=== PATIENT | male | born 2000 | race Caucasian/White ===

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

== ENCOUNTER 2019-09-26 08:25 | Emergency (ER) | payer OTHER, MEDICAID ==
[~2019-09-26] VITALS: Ht 177.8 cm; Wt 98.0 kg
[~2019-09-26 08:25] MED LIST changes: -DULO60CA63 PO; +DULO60CA64 PO
[2019-09-26] MEDS ORDERED: SODIUM CHLORIDE 0.9% 1,000 ML IV ONE (08:57)
[2019-09-26] MEDS ORDERED: MORPHINE SULFATE 4 MG/ML CPJ (NOT FOR IM USE) IV STA (08:57)
[2019-09-26] MEDS ORDERED: ONDANSETRON HCL 4MG/2ML INJ IV STA (08:57)
[2019-09-26 09:15] LABS: HEMATOCRIT. 44.7 % (42.0-52.0); HEMOGLOBIN. 15.6 g/dL (14.0-18.0); MEAN CORPUSCULAR HEMOGLOBIN 30.6 pg (28.0-32.0); MEAN CORPUSCULAR VOLUME 87.5 fL (80.0-94.0); MEAN PLATELET VOLUME 7.2 fl (7.4-10.4); PLATELET 335 x1000/uL (130-400); RED CELL DISTRIBUTION WIDTH 13.6 % (11.6-14.6)
[2019-09-26 09:18] LABS: CHLORIDE 107 mEq/L (98-107)
[2019-09-26 09:19] LABS: CLARITY URINE CLEAR (CLEAR); COLOR URINE YELLOW (YELLOW); KETONES URINE 1+ (NEGATIVE); LEUKOCYTE ESTERASE URINE NEGATIVE (NEGATIVE); NITRITE URINE NEGATIVE (NEGATIVE); OCCULT BLOOD URINE NEGATIVE (NEGATIVE); PH URINE 5.5 (4.5-8.0); PROTEIN URINE 1+ (NEGATIVE); SPECIFIC GRAVITY URINE 1.035 (1.005-1.030); UROBILINOGEN URINE 0.2 E.U./dL (0.2-1.0)
[2019-09-26 10:28] LABS: PLATELET ESTIMATE NORMAL
[2019-09-26] MEDS ORDERED: ONDANSETRON HCL 4MG/2ML INJ IV ONE (10:30)
[2019-09-26 12:20] VITALS: BP 140/88
== END 2019-09-26 12:40 | disposition home or self-care (01) ==
LOC: ER 08:25
DX: K29.70 Gastritis, unspecified, without bleeding (principal); F12.10 Cannabis abuse, uncomplicated; F15.10 Other stimulant abuse, uncomplicated; Z79.899 Other long term (current) drug therapy
CPT/HCPCS: 36415; 74176; 80053; 81003; 83690; 85025; 85610; 96361; 96374; 96375; 96376; 99285; J2270; J2405; J7030

== ENCOUNTER 2023-05-06 10:26 | Emergency (ER) | payer MEDICAID ==
[~2023-05-06] VITALS: Ht 177.8 cm; Wt 100.0 kg
[2023-05-06 10:35] VITALS: TEMP 98.4; O2SAT 99
[2023-05-06 11:00] LABS: BASOPHILS % 0.2 % (0.0-2.0); EOSINOPHILS % 0.2 % (0.0-5.0); HEMATOCRIT. 45.6 % (42.0-52.0); HEMOGLOBIN. 15.9 g/dL (14.0-18.0); LYMPHOCYTES % 9.7 % (20.0-50.0); MEAN CORPUSCULAR HEMOGLOBIN 30.8 pg (28.0-32.0); MEAN CORPUSCULAR HGB CONC 34.8 g/dL (31.0-37.0); MEAN CORPUSCULAR VOLUME 88.4 fL (80.0-94.0); MEAN PLATELET VOLUME 7.5 fl (7.4-10.4); MONOCYTES % 5.1 % (2.0-8.0); NEUTROPHILS % 84.8 % (40.0-76.0); PLATELET 364 x1000/uL (130-400); RED BLOOD CELL COUNT 5.16 mill/uL (4.7-6.1); RED CELL DISTRIBUTION WIDTH 13.8 % (11.6-14.6); WHITE BLOOD COUNT 10.3 x1000/uL (4.5-11.0)
[2023-05-06] MEDS: ONDANSETRON 4MG ODT PO ONE (11:00)
[2023-05-06] MEDS: FAMOTIDINE 20MG TABLET PO SCH (11:05)
[2023-05-06] MEDS: MAGNESIUM/ALUMINUM HYDROXIDE/SIMETHICONE 30ML UDC PO ONE (11:05)
[2023-05-06 11:21] LABS: ALANINE AMINOTRANSFERASE 92 IU/L (10-49); ALBUMIN 5.1 g/dL (3.2-4.8); ASPARTATE AMINOTRANSFERASE 48 IU/L (<34); BILIRUBIN TOTAL 0.6 mg/dL (0.1-1.0); CALCIUM 10.2 mg/dL (8.7-10.4); CARBON DIOXIDE 26 mEq/L (21-32); CHLORIDE 102 mEq/L (98-107); CREATININE 1.1 mg/dL (0.6-1.3); GLUCOSE 114 mg/dL (70-105); POTASSIUM 3.8 mEq/L (3.5-5.1); PROTEIN TOTAL 8.3 g/dL (6.0-8.3); SODIUM 137 mEq/L (136-145); UREA NITROGEN BLOOD 14 mg/dL (9-23)
[2023-05-06 12:24] LABS: CLARITY URINE CLEAR (CLEAR); COLOR URINE YELLOW (YELLOW); GLUCOSE URINE NEGATIVE (NEGATIVE); KETONES URINE 1+ (NEGATIVE); LEUKOCYTE ESTERASE URINE NEGATIVE (NEGATIVE); NITRITE URINE NEGATIVE (NEGATIVE); OCCULT BLOOD URINE NEGATIVE (NEGATIVE); PH URINE 8.5 (4.5-8.0); PROTEIN URINE NEGATIVE (NEGATIVE); SPECIFIC GRAVITY URINE 1.015 (1.005-1.030); UROBILINOGEN URINE 0.2 E.U./dL (0.2-1.0)
[2023-05-06 12:52] LABS: *AMPHETAMINES SCREEN URINE NEGATIVE (NEGATIVE); *BARBITURATES SCREEN URINE NEGATIVE (NEGATIVE); *BENZODIAZEPINES SCREEN URINE NEGATIVE (NEGATIVE); *COCAINE SCREEN URINE NEGATIVE (NEGATIVE); CANNABINOID URINE SCREEN PRESUMPTIVE POSITIVE (NEGATIVE); ECSTASY MDMA SCREEN URINE NEGATIVE (NEGATIVE); METHADONE URINE SCREEN Neg (NEGATIVE); OPIATES URINE SCREEN NEGATIVE (NEGATIVE); PHENCYCLIDINE URINE SCREEN NEGATIVE (NEGATIVE)
[2023-05-06 15:53] VITALS: BP 124/103; PULSE 87; RESP 16
== END 2023-05-06 15:57 | disposition home or self-care (01) ==
LOC: ER 11:19
DX: R11.10 Vomiting, unspecified (principal); F12.90 Cannabis use, unspecified, uncomplicated; Z79.899 Other long term (current) drug therapy
CPT/HCPCS: 80053; 80305; 81003; 83690; 85025; 36415; 74176; 99291; Q0162; Z7610; 99284

== ENCOUNTER 2024-03-23 11:21 | Emergency (ER) | payer MEDICAID ==
[~2024-03-23] VITALS: Ht 177.8 cm; Wt 91.0 kg
[2024-03-23 11:24] VITALS: O2SAT 99
[2024-03-23 12:05] LABS: HEMATOCRIT. 53.2 % (42.0-52.0); HEMOGLOBIN. 18.3 g/dL (14.0-18.0); MEAN CORPUSCULAR HEMOGLOBIN 31.2 pg (28.0-32.0); MEAN CORPUSCULAR HGB CONC 34.3 g/dL (31.0-37.0); MEAN CORPUSCULAR VOLUME 90.8 fL (80.0-94.0); MEAN PLATELET VOLUME 7.2 fl (7.4-10.4); PLATELET 448 x1000/uL (130-400); RED BLOOD CELL COUNT 5.86 mill/uL (4.7-6.1); RED CELL DISTRIBUTION WIDTH 14.4 % (11.6-14.6); WHITE BLOOD COUNT 23.9 x1000/uL (4.5-11.0)
[2024-03-23 12:07] LABS: DIFFERENTIAL COMMENT 1
[2024-03-23 12:15] LABS: CHLORIDE 90 mEq/L (98-107); POTASSIUM 3.9 mEq/L (3.5-5.1); SODIUM 129 mEq/L (136-145)
[2024-03-23 12:16] LABS: CARBON DIOXIDE 22 mEq/L (21-32)
[2024-03-23 12:17] LABS: CALCIUM 11.2 mg/dL (8.7-10.4)
[2024-03-23 12:21] LABS: GLUCOSE 133 mg/dL (70-105)
[2024-03-23 12:22] LABS: TROPONIN I HIGH SENSITIVITY 9 ng/L (3.0-53); UREA NITROGEN BLOOD 43 mg/dL (9-23)
[2024-03-23 12:23] LABS: ALANINE AMINOTRANSFERASE 33 IU/L (10-49); ALBUMIN 5.6 g/dL (3.2-4.8); ASPARTATE AMINOTRANSFERASE 24 IU/L (<34); BILIRUBIN DIRECT 0.3 mg/dL (<=3.0)
[2024-03-23 12:24] LABS: BILIRUBIN TOTAL 1.1 mg/dL (0.1-1.0); PROTEIN TOTAL 9.9 g/dL (6.0-8.3)
[2024-03-23 12:39] LABS: CREATININE 3.8 mg/dL (0.6-1.3)
[2024-03-23 12:58] LABS: CLARITY URINE CLOUDY (CLEAR); COLOR URINE DARK YELLOW (YELLOW); GLUCOSE URINE NEGATIVE (NEGATIVE); KETONES URINE TRACE (NEGATIVE); LEUKOCYTE ESTERASE URINE NEGATIVE (NEGATIVE); NITRITE URINE NEGATIVE (NEGATIVE); OCCULT BLOOD URINE NEGATIVE (NEGATIVE); PROTEIN URINE 2+ (NEGATIVE); SPECIFIC GRAVITY URINE 1.025 (1.005-1.030)
[2024-03-23] MEDS: ONDANSETRON HCL 4MG/2ML INJ IV STA (13:28)
[2024-03-23] MEDS: SODIUM CHLORIDE 0.9% 1,000 ML IV ONE ×2 (13:28)
[2024-03-23 14:25] LABS: SQUAMOUS EPITHELIAL CELL URINE RARE /lpf (RARE/1+)
[2024-03-23 14:26] LABS: BACTERIA URINE 1+; RBC URINE NONE SEEN /hpf (0-2); WBC URINE 0-2 /hpf (0-2)
[2024-03-23] MEDS: FAMOTIDINE 20MG/2ML VIAL IV ONE (16:28)
[2024-03-23] MEDS: MORPHINE SULFATE 4 MG/ML INJ (FOR IV/IM USE) IV ONE (16:28)
[2024-03-23 18:27] VITALS: BP 145/87; PULSE 92; RESP 17; TEMP 36.89184; O2SAT 94
[2024-03-23 20:55] LABS: PLATELET ESTIMATE INCREASED
== END 2024-03-23 19:15 | disposition short-term general hospital (02) ==
LOC: ER 11:21 → EDBEDREQ 12:54 → CANBEDREQ 15:07 → ER 19:15
DX: N17.9 Acute kidney failure, unspecified (principal); F12.90 Cannabis use, unspecified, uncomplicated; R11.2 Nausea with vomiting, unspecified
CPT/HCPCS: 80076; 80048; 81003; 80320; 85025; 84484; 36415; 71045; 74176; 93005; 96361; 96374; 96375; 99285; J3490; J2405; J2270; J7030; G0480

== ENCOUNTER 2024-08-23 12:55 | Emergency (ER) | payer SELFPAY ==
[~2024-08-23] VITALS: Ht 180.3 cm; Wt 96.0 kg
[2024-08-23 12:58] VITALS: O2SAT 100
[2024-08-23 13:06] VITALS: BP 132/81; PULSE 93; RESP 16; TEMP 36.7; O2SAT 99
[2024-08-23] MEDS ORDERED: ACYC200C31 MT (13:45)
[2024-08-23] MEDS ORDERED: PERM60CR4 TP (13:47)
== END 2024-08-23 14:09 | disposition left against medical advice (07) ==
LOC: ER 12:55
DX: R21 Rash and other nonspecific skin eruption (principal); Z79.899 Other long term (current) drug therapy
CPT/HCPCS: 99283

== ENCOUNTER 2024-11-06 21:58 | Emergency (ER) | payer SELFPAY ==
[~2024-11-06] VITALS: Ht 180.3 cm; Wt 109.0 kg
[~2024-11-06 21:58] MED LIST changes: +ACYC200C31 MT; +PERM60CR4 TP
[2024-11-06 22:22] VITALS: O2SAT 99
[2024-11-06 22:49] LABS: *AMPHETAMINES SCREEN URINE PRESUMPTIVE POSITIVE (NEGATIVE); *BARBITURATES SCREEN URINE NEGATIVE (NEGATIVE); *BENZODIAZEPINES SCREEN URINE NEGATIVE (NEGATIVE); *COCAINE SCREEN URINE NEGATIVE (NEGATIVE); CANNABINOID URINE SCREEN PRESUMPTIVE POSITIVE (NEGATIVE); ECSTASY MDMA SCREEN URINE NEGATIVE (NEGATIVE); METHADONE URINE SCREEN NEGATIVE (NEGATIVE); OPIATES URINE SCREEN NEGATIVE (NEGATIVE); PHENCYCLIDINE URINE SCREEN NEGATIVE (NEGATIVE)
[2024-11-06 22:52] LABS: BASOPHILS % 0.5 % (0.0-2.0); EOSINOPHILS % 1.2 % (0.0-5.0); HEMATOCRIT. 43.4 % (42.0-52.0); HEMOGLOBIN. 14.6 g/dL (14.0-18.0); LYMPHOCYTES % 13.5 % (20.0-50.0); MEAN PLATELET VOLUME 7.5 fl (7.4-10.4); MONOCYTES % 5.0 % (2.0-8.0); NEUTROPHILS % 79.8 % (40.0-76.0); PLATELET 341 x1000/uL (130-400); RED BLOOD CELL COUNT 4.79 mill/uL (4.7-6.1); RED CELL DISTRIBUTION WIDTH 14.3 % (11.6-14.6)
[2024-11-06 22:52] LABS: CLARITY URINE CLEAR (CLEAR); COLOR URINE YELLOW (YELLOW); GLUCOSE URINE NEGATIVE (NEGATIVE); KETONES URINE TRACE (NEGATIVE); LEUKOCYTE ESTERASE URINE NEGATIVE (NEGATIVE); NITRITE URINE NEGATIVE (NEGATIVE); OCCULT BLOOD URINE NEGATIVE (NEGATIVE); PH URINE 5.5 (4.5-8.0); PROTEIN URINE TRACE (NEGATIVE); SPECIFIC GRAVITY URINE 1.035 (1.005-1.030); UROBILINOGEN URINE 1.0 E.U./dL (0.2-1.0)
[2024-11-06 23:04] LABS: CREATININE 1.1 mg/dL (0.6-1.3); UREA NITROGEN BLOOD 16 mg/dL (9-23)
[2024-11-06 23:05] LABS: ETHANOL BLOOD < 10 mg/dL (<10)
[2024-11-06 23:08] LABS: BACTERIA URINE NONE SEEN; RBC URINE NONE SEEN /hpf (0-2); SQUAMOUS EPITHELIAL CELL URINE RARE /lpf (RARE/1+); WBC URINE 0-2 /hpf (0-2)
[2024-11-07] MEDS ORDERED: HYDROXYZINE 25MG TABLET PO PRN (08:45)
[2024-11-07] MEDS: QUETIAPINE FUMARATE 25MG TABLET PO SCH (09:00)
[2024-11-08 00:06] LABS: CREATININE 1.0 mg/dL (0.6-1.3)
[2024-11-08 00:07] LABS: UREA NITROGEN BLOOD 18 mg/dL (9-23)
[2024-11-08 00:08] LABS: ASPARTATE AMINOTRANSFERASE 27 IU/L (<34)
[2024-11-08 00:09] LABS: BILIRUBIN DIRECT 0.1 mg/dL (<=3.0); BILIRUBIN TOTAL 0.4 mg/dL (0.1-1.0); PROTEIN TOTAL 7.1 g/dL (6.0-8.3)
[2024-11-08 11:45] VITALS: BP 123/70; PULSE 70; RESP 16; TEMP 36.9; O2SAT 99
== END 2024-11-08 11:45 | disposition home or self-care (01) ==
LOC: ER 21:58
DX: R45.851 Suicidal ideations (principal); F41.9 Anxiety disorder, unspecified; F32.A Depression, unspecified; Z20.822 Contact with and (suspected) exposure to COVID-19; Z79.899 Other long term (current) drug therapy
CPT/HCPCS: 36415; 80048; 80053; 80076; 80305; 80307; 80320; 80329; 81003; 85025; 87426; 99285; G0480